=== PATIENT | male | born 1985 | race African-American/Black ===

== ENCOUNTER 2020-09-25 19:39 | Emergency (ER) | payer SELFPAY ==
[~2020-09-25] VITALS: Ht 182.9 cm; Wt 68.0 kg
[2020-09-25 19:40] VITALS: BP 140/80
== END 2020-09-26 04:06 | disposition left against medical advice (07) ==
LOC: EDBD 19:39 → ER 19:46
DX: F41.9 Anxiety disorder, unspecified (principal); F15.10 Other stimulant abuse, uncomplicated